=== PATIENT | female | born 1955 | race Caucasian/White ===

== ENCOUNTER 2020-02-24 13:23 | Emergency (ER) | payer MEDICAID, MEDICARE ==
[~2020-02-24] VITALS: Ht 160 cm; Wt 48.5 kg
[2020-02-24 13:34] VITALS: BP 120/64
== END 2020-02-24 15:15 | disposition left against medical advice (07) ==
LOC: ER 13:23
DX: H57.11 Ocular pain, right eye (principal); Z53.21 Procedure and treatment not carried out due to patient leaving prior to being seen by health care provider